=== PATIENT | female | born 1930 | race Caucasian/White ===

== ENCOUNTER → 2017-03-28 | Outpatient (CLI) | payer OTHER ==
[~2017-03-28] MED LIST: ASPIRIN EC81 M1 PO; ATENOLOL50 MG PO; BIOTIN5 MG PO; CELEXA20 MG PO; CENTRUM SILVER PO; CITRACAL + D CA1 TA1 PO; CO Q-10200 MG PO; COLACE PO; FOSAMAX70 MG PO; LECITHIN PO; LORTAB 7.5-5001 TAB PO; MELATONIN5 M1 PO; PHENERGAN25 M1 DOB; SENSIPAR30 MG PO; STOOL SOFTENER1 EAC1 PO; SYNTHROID75 MCG PO; TAMOXIFEN CITRA20 MG PO; TART CHERRY JUICE; VITAL-D RX TABL1 TAB PO; ZOCOR PO; [UNRECOGNIZED DRUG - OTHER]
--- NOTE | ~2017-03-28 | CT4 ---
[facility] A Service of [facility] & [facility] / [facility] RADIOLOGY TEXT RESULTS PATIENT: BARRIE OSEGUERA LOCATION: [facility] : [birth year] UNIT #: [id number] AGE: [address]: Catalino Duarte MD SEX: F ORDER DR: [id number] [facility] [address] [place], [place] [address] [id number] O MR#: [id number] #: [id number] NAME: BARRIE OSEGUERA : 1930 SEX: F STUDY DATE/TIME: 03/28/2017 12:51 UNIT: [facility] ROOM: STUDY DESCRIPTION: CT Abd and Pelv Wo Cont Attending Physician: Catalino Duarte M.D. Referring Physician: Catalino Duarte M.D. Ordering Physician: Catalino Duarte M.D. Primary Care Physician: Catalino Duarte M.D. MEDICAL IMAGING REPORT This report is preliminary unless electronic signature is present EXAM Abdomen and pelvis CT no contrast, 03/28/2017 INDICATION Microscopic hematuria in an 86-year-old female seen on recent blood work. No current complaints. Hypertension. TECHNIQUE Noncontrast abdomen and pelvis CT was performed. This CT exam was performed with one or more of the following radiation dose reduction techniques: automatic exposure control, adjustment of mA and/or kV according to patient size, and iterative reconstruction. COMPARISON 10/02/2016 FINDINGS Examination markedly degraded by noncontrast technique. Included lung bases demonstrate emphysema, scarring and fibrotic change. No effusion. There is a mild pectus excavatum deformity with mass effect upon the heart that is unchanged. Aorta demonstrates atherosclerotic change. There is no aneurysm. The spleen, adrenal glands, pancreas and gallbladder are unremarkable. Liver unremarkable. Kidneys demonstrate no hydronephrosis or radiopaque stone on either side. Visualized ureters unremarkable. CT PELVIS: The bladder is unremarkable. 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 There is no drainable fluid collection in the pelvis or free fluid. There is diverticulosis of the colon. There is no convincing evidence on CT of acute diverticulitis. There is some thickening of the fat planes in the STS. [facility] A Service of [facility] & [facility] / [facility] RADIOLOGY TEXT RESULTS PATIENT: BARRIE OSEGUERA LOCATION: [facility] : [birth year] UNIT #: [id number] AGE: [address]: Catalino Duarte MD SEX: F ORDER DR: left hemipelvis that is unchanged from 2016 and is felt to be related to prior surgery rather than reflecting mild acute diverticulitis but this should be correlated clinically. No bowel obstruction. Appendix not identified and may be surgically absent. No inflammatory change in the right lower quadrant. Inguinal canals are unremarkable. Osseous structures demonstrate no suspicious bone lesion. IMPRESSION 1. No radiopaque stone or hydronephrosis of either kidney. 2. Diverticulosis without convincing evidence of acute diverticulitis. See discussion above regarding probable chronic changes involving the sigmoid colon rather than mild acute diverticulitis. 3. 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 4. Emphysema and atherosclerotic disease. Dictated by... Heriberto Cavazos M.D. THIS IS AN ELECTRONICALLY VERIFIED REPORT Heriberto Cavazos M.D. at 03/28/2017 5:05 PM TIMUR/carlos TD: 03/28/2017 14:35 JOB #: [id number] MEDICAL IMAGING REPORT Page 1 of 1 COPY
== END | disposition home or self-care (01) ==
LOC: CCAT 12:36
DX: R31.1 Benign essential microscopic hematuria (principal); K57.90 Diverticulosis of intestine, part unspecified, without perforation or abscess without bleeding; J43.9 Emphysema, unspecified; I70.90 Unspecified atherosclerosis; Z90.710 Acquired absence of both cervix and uterus; Z90.49 Acquired absence of other specified parts of digestive tract
CPT/HCPCS: 74176

== ENCOUNTER → 2017-05-27 | Outpatient (CLI) | payer OTHER ==
--- NOTE | ~2017-05-27 | MY26 ---
[facility] A Service of [facility] RADIOLOGY TEXT RESULTS PATIENT: BARRIE OSEGUERA LOCATION: [facility] : [birth year] UNIT #: [id number] AGE: [address]: Ramakrishna Hoyos MD SEX: F ORDER DR: [id number] [facility] [address] [place], [place] [address] [id number] O MR#: [id number] Acc #: [id number] NAME: BARRIE OSEGUERA : 1930 SEX: F STUDY DATE/TIME: 05/27/2017 10:42 UNIT: [facility] ROOM: STUDY DESCRIPTION: [facility] DIAGNOSTIC W/ CAD BILAT Attending Physician: Ramakrishna Hoyos M.D. Ordering Physician: Ramakrishna Hoyos M.D. Primary Care Physician: Catalino Duarte M.D. MEDICAL IMAGING REPORT This report is preliminary unless electronic signature is present EXAM Diagnostic mammogram 05/27 INDICATIONS History of left breast cancer. No current complaints. FINDINGS Digital CC and MLO views of both breasts were obtained. A left true lateral view was obtained. Study reviewed with an FDA-approved CAD device. Comparison is made with 05/22/2016, 03/31/2015, and 03/16/2014. FINDINGS Breast parenchyma shows scattered fibroglandular densities. No masses or suspicious microcalcifications are seen. Benign calcifications in the lateral right breast are stable. Left lumpectomy bed is stable. Findings were discussed with the patient at the time of her exam today. IMPRESSION Benign mammogram. Routine yearly follow up is recommended as long as the patient remains in good health. Patients over the age of 40 are entered into a reminder system with target due date for the next mammogram. A result letter will also be sent to the patient. BIRADS: 2 - benign findings Dictated by... Diogo Jonas Jr., M.D. [facility] A Service of [facility] RADIOLOGY TEXT RESULTS PATIENT: BARRIE OSEGUERA LOCATION: [facility] : [birth year] UNIT #: [id number] AGE: [address]: Ramakrishna Hoyos MD SEX: F ORDER DR: THIS IS AN ELECTRONICALLY VERIFIED REPORT Diogo Jonas Jr., M.D. at 05/27/2017 5:20 PM ANTHONY/alf TD: 05/27/2017 15:25 JOB #: [id number] MEDICAL IMAGING REPORT Page 1 of 1 COPY
== END | disposition home or self-care (01) ==
LOC: CMAM 10:07
DX: Z08 Encounter for follow-up examination after completed treatment for malignant neoplasm (principal); Z85.3 Personal history of malignant neoplasm of breast
CPT/HCPCS: G0204